=== PATIENT | male | born 1970 | race African-American/Black ===

== ENCOUNTER 2018-06-08 10:23 | Emergency (ER) | payer OTHER ==
[2018-06-08] MEDS ORDERED: HYDROCODONE/ACETAMINOPHEN 5-325 MG TABLET PO ONE (11:00)
[2018-06-08] MEDS ORDERED: PREDNISONE 20 MG TABLET PO ONE (11:00)
--- NOTE | 2018-06-08 11:02 | ER Document Report ---
HPI - HPI Patient complains to provider of: r shoulder pain Time Seen by Provider: 06/08/18 10:46 Onset: Last week Onset/Duration: Persistent Quality of pain: Achy Pain Level: 4 Context: Patient states that he was lifting a shovel at work and felt pain suddenly in his right shoulder. Patient is right-hand dominant. Patient also reports that he has been out of his blood pressure medicine for the past 3 years as he lost his insurance. Patient denies any headache chest pain shortness of breath back pain or changes in vision. Patient also complains of pruritic skin rash to the extremities and trunk area for the past 3 months. Patient's mother is at bedside is concerned that he may have been exposed to scabies. Associated Symptoms: Other. denies: Chest pain, Nonproductive cough, Fever, Nausea, Shortness of breath Exacerbated by: Movement Relieved by: Remaining still Similar symptoms previously: No Recently seen / treated by doctor: No - ROS ROS below otherwise negative: Yes Systems Reviewed and Negative: Yes All other systems reviewed and negative - CONSTITUTIONAL Constitutional: DENIES: Fever - NEURO Neurology: DENIES: Headache, Weakness, Vision blurred - CARDIOVASCULAR Cardiovascular: DENIES: Chest pain - RESPIRATORY Respiratory: DENIES: Coughing - GASTROINTESTINAL Gastrointestinal: DENIES: Abdominal Pain, Nausea, Patient vomiting - MUSCULOSKELETAL Musculoskeletal: REPORTS: Extremity pain - DERM Skin Color: Normal Skin Problems: Rash Past Medical History - General Information source: Patient - Social History Smoking Status: Current Every Day Smoker Smoking Education Provided: Yes Frequency of alcohol use: Occasional Drug Abuse: None Occupation: concrete Family History: Reviewed & Not Pertinent - Past Medical History Cardiac Medical History: Reports: Hx Hypertension Surgical Hx: Negative Vertical Provider Document - CONSTITUTIONAL Agree With Documented VS: Yes Exam Limitations: No Limitations General Appearance: WD/WN, No Apparent Distress - INFECTION CONTROL TRAVEL OUTSIDE OF THE [place] IN LAST 30 DAYS: No - HEENT HEENT: Atraumatic, Normocephalic - NECK Neck: Normal Inspection, Supple. negative: Lymphadenopathy-Left, Lymphadenopathy-Right - RESPIRATORY Respiratory: Breath Sounds Normal, No Respiratory Distress - CARDIOVASCULAR Cardiovascular: Regular Rate, Regular Rhythm Pulses: Normal: Radial - BACK Back: Normal Inspection - MUSCULOSKELETAL/EXTREMETIES Musculoskeletal/Extremeties: MAEW, FROM, Tender - Right shoulder joint tende rness over AC joint that worsens with shoulder extension. No increased pain with abduction. No dislocation or deformity., No Edema - NEURO Level of Consciousness: Awake, Alert, Appropriate Motor/Sensory: No Motor Deficit - DERM Integumentary: Warm, Dry, Rash - Patient with diffuse erythematous macular papular rash to trunk and extremities with scattered excoriations Course - Re-evaluation Re-evalutation: 06/08/18 11:02 Patient hypertensive here today with blood pressure 195/116. Patient denies any headache chest pain shortness of breath or back pain. Patient would like to be restarted on blood pressure medication and states that he used to take lisinopril. Patient with a rash distributed to extremities. Patient's family member is worried about possible scabies. Will place patient on a short course of steroids for skin rash and give the patient prescription for Elimite cream given concern about possible exposure to scabies. - Vital Signs Vital signs: Temp Pulse Resp BP Pulse Ox 98.0 F 108 H 16 195/116 H 100 06/08/18 10:36 06/08/18 10:36 06/08/18 10:36 06/08/18 10:36 06/08/18 10:36 - Laboratory Result Diagrams: 06/08/18 11:10 Laboratory results interpreted by me: 06/08/18 11:50 Labs- Entire Visit 06/08/18 11:10 Sodium 139.0 Potassium 4.3 Chloride 105 Carbon Dioxide 25 Anion Gap 9 BUN 15 Creatinine 0.77 Est GFR ( Amer) > 60 Est GFR (Non-Af Amer) > 60 Glucose 92 Calcium 9.8 - Diagnostic Test Radiology reviewed: Image reviewed, Reports reviewed Procedures - Immobilization Right Shoulder Pre-Proc Neuro Vasc Exam: Normal Immobilizer type: Sling Performed by: PCT Post-Proc Neuro Vasc Exam: Normal Alignment checked and good: Yes Discharge - Discharge Clinical Impression: Skin rash Sprain of shoulder, right Qualifiers: Encounter type: initial encounter Shoulder sprain type: unspecified sprain Qualified Code(s): S43.401A - Unspecified sprain of right shoulder joint, initial encounter Hypertension Qualifiers: Hypertension type: unspecified Qualified Code(s): I10 - Essential (primary) hypertension Condition: Stable Disposition: HOME, SELF-CARE Instructions: Anti-Mite Skin Creams, High Blood Pressure, Requiring Treatment ([facility]), Ice & Elevation ([facility]), Shoulder Injury ([facility]), Steroid Medication, Temporary Sling ([facility]) Additional Instructions: Return immediately for any new or worsening symptoms Followup with your primary care provider, call tomorrow to make a followup appointment Follow-up with orthopedics for any persistent shoulder pain. Follow-up with your primary doctor to recheck your blood pressure. They may need to adjust her daily dosage of medication. Prescriptions: Cyclobenzaprine HCl [Flexeril 10 Mg Tablet] 10 mg PO TID #15 tablet Lisinopril [Zestril] 10 mg PO DAILY #30 tablet Permethrin [Elimite] 60 gm TP ONCE #60 gm Prednisone [Deltasone 10 mg Tablet] 10 mg PO ASDIR PRN #21 tablet PRN Reason: Forms: Elevated Blood Pressure, Smoking Cessation Education, Return to Work Referrals: [facility] [Provider Group] - Follow up as needed [facility] [Provider Group] - Follow up as needed [facility] [Provider Group] - Follow up as needed
[2018-06-08 11:43] LABS: ANION GAP 9 (5-19); BLOOD UREA NITROGEN 15 mg/dL (7-20); CALCIUM 9.8 mg/dL (8.4-10.2); CARBON DIOXIDE 25 mmol/L (22-30); CHLORIDE 105 mmol/L (98-107); GLUCOSE 92 mg/dL (75-110); POTASSIUM 4.3 mmol/L (3.6-5.0)
[2018-06-08] MEDS ORDERED: LISINOPRIL 10 MG TABLET PO ONE (11:49)
--- NOTE | 2018-06-08 11:49 | RADIOLOGY REPORT (SQ) ---
EXAM DESCRIPTION: SHOULDER RIGHT 2 OR MORE VIEWS COMPLETED DATE/TIME: 06/08/2018 11:26 am REASON FOR STUDY: r shoulder pain COMPARISON: None. NUMBER OF VIEWS: Three views. TECHNIQUE: Internal rotation, external rotation, and Y view images acquired of the right shoulder. LIMITATIONS: None. FINDINGS: MINERALIZATION: Normal. BONES: No acute fracture or dislocation. Small cystic changes in the humeral head. JOINTS: No dislocation. VISUALIZED LUNGS AND RIBS: No pneumothorax. No rib fracture. SOFT TISSUES: No radiopaque foreign body. OTHER: No other significant finding. IMPRESSION: 1. No acute osseous findings. TECHNICAL DOCUMENTATION: JOB ID: [id number] [email or web address]- All Rights Reserved Reading location - IP/workstation name: [email or web address]
[2018-06-08 12:05] VITALS: BP 202/121
== END 2018-06-08 12:03 | disposition home or self-care (01) ==
LOC: ER 10:23
DX: S43.401A Unspecified sprain of right shoulder joint, initial encounter (principal); M25.511 Pain in right shoulder; X50.9XXA Other and unspecified overexertion or strenuous movements or postures, initial encounter; Y99.0 Civilian activity done for income or pay; I10 Essential (primary) hypertension; T46.4X6A Underdosing of angiotensin-converting-enzyme inhibitors, initial encounter; Z91.120 Patient's intentional underdosing of medication regimen due to financial hardship; Z91.14 Patient's other noncompliance with medication regimen; R21 Rash and other nonspecific skin eruption; L29.8 Other pruritus; Z20.7 Contact with and (suspected) exposure to pediculosis, acariasis and other infestations; F17.200 Nicotine dependence, unspecified, uncomplicated
CPT/HCPCS: 99283; 36415; 80048; 73030; J7512

== ENCOUNTER 2019-07-27 15:11 | Emergency (ER) | payer SELFPAY ==
--- NOTE | 2019-07-27 15:43 | ER Document Report ---
ED Medical Screen (RME) - General Chief Complaint: High Blood Pressure Stated Complaint: HIGH BLOOD PRESSURE Time Seen by Provider: 07/27/19 15:38 Mode of Arrival: Ambulatory Information source: Patient Notes: 49-year-old male presented to ED for complaint of right shoulder pain left knee chest pain and states that he is been binge drinking. He states his last alcohol was this morning and had over 24 beer. He states he does smoke 2 packs/day he is alert oriented respirations regular nonlabored speaking in full sentences. He states he needs a lot of help with what is going on in his life. I have greeted and performed a rapid initial assessment of this patient. A comprehensive ED assessment and evaluation of the patient, analysis of test results and completion of medical decision making process will be conducted by an additional ED providers. TRAVEL OUTSIDE OF THE [place] IN LAST 30 DAYS: No - Related Data Allergies/Adverse Reactions: No Known Allergies Allergy (Unverified 06/08/18 10:27) Past Medical History - Past Medical History Cardiac Medical History: Reports: Hx Hypertension Renal/ Medical History: Denies: Hx Peritoneal Dialysis Physical Exam - Vital signs Vitals: Temp Pulse Resp BP Pulse Ox 98.3 F 98 18 178/94 H 97 07/27/19 15:17 07/27/19 15:17 07/27/19 15:17 07/27/19 15:17 07/27/19 15:17 Course - Vital Signs Vital signs: Temp Pulse Resp BP Pulse Ox 98.3 F 98 18 182/102 H 97 07/27/19 15:38 07/27/19 15:17 07/27/19 15:17 07/27/19 15:45 07/27/19 15:17 - Laboratory Result Diagrams: 07/27/19 15:55 07/27/19 15:55 Laboratory results interpreted by me: 07/27/19 07/27/19 15:55 15:55 RDW 15.1 H [place] % (Auto) 14.1 H AST 72 H ALT 59 H Salicylates < 1.0 L Acetaminophen < 10 L
[2019-07-27 15:46] VITALS: BP 182/102
--- NOTE | 2019-07-27 15:53 | PSYCHOLOGICAL NOTE ---
Psych Note - Psych Note Date seen by psych provider: 07/27/19 Psych Note: Patient has a bed waiting at [facility]. Once he is medically cleared please call [phone] for a nurse to nurse.
[2019-07-27 16:13] LABS: ABSOLUTE EOSINOPHILS # (AUTO) 0.1 10^3/uL (0.0-0.6); ABSOLUTE LYMPHOCYTES (AUTO) 1.7 10^3/uL (0.5-4.7); ABSOLUTE MONOCYTES (AUTO) 0.6 10^3/uL (0.1-1.4); ABSOLUTE NEUT (AUTO) 1.8 10^3/uL (1.7-8.2); BASOPHILS % (AUTO) 0.9 % (0-2); LYMPHOCYTES % (AUTO) 40.5 % (13-45); MEAN CORPUSCULAR HEMOGLOBIN 30.5 pg (27.0-33.4); MEAN CORPUSCULAR VOLUME 90 fl (80-97); MONOCYTES % (AUTO) 14.1 % (3-13); PLATELET COUNT 182 10^3/uL (150-450); RED BLOOD COUNT 5.24 10^6/uL (4.35-5.55); RED CELL DISTRIBUTION WIDTH 15.1 % (11.5-14.0); SEGMENTED NEUTROPHILS % (AUTO) 42.5 % (42-78); TOTAL CELLS COUNTED % (AUTO) 100 %; WHITE BLOOD COUNT 4.3 10^3/uL (4.0-10.5)
--- NOTE | 2019-07-27 16:18 | RADIOLOGY REPORT (SQ) ---
EXAM DESCRIPTION: CHEST 2 VIEWS IMAGES COMPLETED DATE/TIME: 07/27/2019 4:03 pm REASON FOR STUDY: Chest pain COMPARISON: None. TECHNIQUE: Frontal and lateral radiographic views of the chest acquired. NUMBER OF VIEWS: Two view. LIMITATIONS: None. FINDINGS: LUNGS AND PLEURA: No opacities, masses or pneumothorax. No pleural effusion. MEDIASTINUM AND HILAR STRUCTURES: No masses or contour abnormalities. HEART AND VASCULAR STRUCTURES: Heart normal size. No evidence for failure. BONES: No acute findings. HARDWARE: None in the chest. OTHER: No other significant finding. IMPRESSION: NO SIGNIFICANT RADIOGRAPHIC FINDING IN THE CHEST. TECHNICAL DOCUMENTATION: JOB ID: [id number] 2010 [employer]- All Rights Reserved Reading location - IP/workstation name: [email or web address]
--- NOTE | 2019-07-27 16:19 | RADIOLOGY REPORT (SQ) ---
EXAM DESCRIPTION: SHOULDER RIGHT 2 OR MORE VIEWS IMAGES COMPLETED DATE/TIME: 07/27/2019 4:03 pm REASON FOR STUDY: Right shoulder pain COMPARISON: 06/08/2018 NUMBER OF VIEWS: Three views. TECHNIQUE: Internal rotation, external rotation, and Y view images acquired of the right shoulder. LIMITATIONS: None. FINDINGS: MINERALIZATION: Normal. BONES: No acute fracture. No worrisome bone lesions. JOINTS: No dislocation. VISUALIZED LUNGS AND RIBS: No pneumothorax. No rib fracture. SOFT TISSUES: No radiopaque foreign body. OTHER: No other significant finding. IMPRESSION: NO RADIOGRAPHIC EVIDENCE OF ACUTE INJURY. TECHNICAL DOCUMENTATION: JOB ID: [id number] 2010 [employer]- All Rights Reserved Reading location - IP/workstation name: [email or web address]
[2019-07-27 16:36] LABS: ACETAMINOPHEN < 10 ug/mL (10-30); ALBUMIN 4.3 g/dL (3.5-5.0); ALCOHOL 212 mg/dL (NONE DETECTED); ALKALINE PHOSPHATASE 64 U/L (38-126); ANION GAP 8 (5-19); ASPARTATE AMINO TRANSFERASE 72 U/L (17-59); BILIRUBIN,TOTAL 0.4 mg/dL (0.2-1.3); BLOOD UREA NITROGEN 10 mg/dL (7-20); CALCIUM 9.2 mg/dL (8.4-10.2); CARBON DIOXIDE 26 mmol/L (22-30); CHLORIDE 106 mmol/L (98-107); GLUCOSE 91 mg/dL (75-110); POTASSIUM 4.5 mmol/L (3.6-5.0); SALICYLATE < 1.0 mg/dL (2.0-20.0); TOTAL PROTEIN 7.4 g/dL (6.3-8.2)
[2019-07-27 16:43] LABS: TROPONIN I 0.03 ng/mL
--- NOTE | 2019-07-27 20:34 | EKG REPORT ---
SEVERITY:- ABNORMAL ECG - SINUS RHYTHM LEFT ATRIAL ABNORMALITY LEFT VENTRICULAR HYPERTROPHY PROBABLE INFERIOR INFARCT, OLD ANTERIOR ST ELEVATION, PROBABLY DUE TO LVH : Confirmed by: Dorothy Vasquez MD 27-Jul-2019 20:34:02
== END 2019-07-28 06:42 | disposition home or self-care (01) ==
LOC: ER 15:11
DX: Z53.20 Procedure and treatment not carried out because of patient's decision for unspecified reasons (principal); I10 Essential (primary) hypertension
CPT/HCPCS: 36415; 71046; 80053; 80307; 83690; 83880; 84484; 85025; 93005; 93010; 99281